=== PATIENT | female | born 1990 | race Caucasian/White ===

== ENCOUNTER 2017-04-03 12:18 | Inpatient (IN) | payer MEDICAID ==
[~2017-04-03] VITALS: Ht 160 cm; Wt 63.5 kg
[2017-04-03 12:55] LABS: BASOPHIL % 0.4 % (0-2); PLATELET COUNT 212 x10^3mcL (130-400); RED CELL DISTRIBUTION WIDTH 14.4 % (11.5-14.5)
[2017-04-03 13:03] LABS: CALCIUM 9.2 mg/dL (8.5-10.1); CARBON DIOXIDE 29.5 mmol/L (21-32); CHLORIDE SERUM 100 mmol/L (98-107); CREATININE SERUM 0.7 mg/dL (0.6-1.0); GFR1 > 60 mL/min; GLUCOSE SERUM 84 mg/dL (74-106); POTASSIUM SERUM 3.3 mmol/L (3.5-5.1); SODIUM SERUM 137 mmol/L (136-145)
[2017-04-03 13:07] LABS: ALBUMIN 3.5 g/dL (3.4-5.0); ALKALINE PHOSPHATASE 83 U/L (46-116); ALT/SGPT 25 U/L (14-59); AST/SGOT 30 U/L (15-37); BILIRUBIN TOTAL 0.7 mg/dL (0.20-1.00); TOTAL PROTEIN, SERUM 7.6 g/dL (6.4-8.2)
[2017-04-03 13:40] LABS: AMPHETAMINE QUAL UR POSITIVE (NEG <=1000)
[2017-04-04 07:57] LABS: MAGNESIUM 1.9 mg/dL (1.8-2.4); PHOSPHOROUS 4.6 mg/dL (2.5-4.9)
[2017-04-04 07:59] LABS: CHOLESTEROL/HDL RATIO 1.5
[2017-04-04 08:05] LABS: FREE T4 0.99 ng/dL (0.76-1.46); FREE THYROXINE INDEX 2.7 ug/dL (1.4-4.5); T3 TOTAL 1.04 ng/mL; T4(THYROXINE) 7.6 ug/dL (4.7-13.3)
[2017-04-05 01:16] VITALS: BP 101/53
[2017-04-05 06:55] LABS: BASOPHIL % 0.8 % (0-2); PLATELET COUNT 215 x10^3mcL (130-400); RED CELL DISTRIBUTION WIDTH 13.9 % (11.5-14.5)
[2017-04-05 07:00] LABS: CALCIUM 8.7 mg/dL (8.5-10.1); CARBON DIOXIDE 27.4 mmol/L (21-32); CHLORIDE SERUM 105 mmol/L (98-107); CREATININE SERUM 0.6 mg/dL (0.6-1.0); GFR1 > 60 mL/min; GLUCOSE SERUM 84 mg/dL (74-106); MAGNESIUM 1.9 mg/dL (1.8-2.4); PHOSPHOROUS 4.4 mg/dL (2.5-4.9); POTASSIUM SERUM 4.1 mmol/L (3.5-5.1); SODIUM SERUM 140 mmol/L (136-145)
[2017-04-05 08:09] VITALS: BP 99/62
[2017-04-05 11:41] VITALS: Ht 160 cm; Wt 63.5 kg
[2017-04-05 18:05] VITALS: BP 90/69
[2017-04-05 20:00] VITALS: BP 100/64
[2017-04-06 05:51] VITALS: BP 118/70
[2017-04-06 06:57] LABS: CALCIUM 8.9 mg/dL (8.5-10.1); CARBON DIOXIDE 27.1 mmol/L (21-32); CHLORIDE SERUM 106 mmol/L (98-107); CREATININE SERUM 0.6 mg/dL (0.6-1.0); GFR1 > 60 mL/min; GLUCOSE SERUM 88 mg/dL (74-106); POTASSIUM SERUM 4.4 mmol/L (3.5-5.1); SODIUM SERUM 139 mmol/L (136-145)
[2017-04-06 09:00] VITALS: BP 98/54
[2017-04-06 11:24] LABS: microscopic required? YES; urine erythrocyte TRACE (NEGATIVE)
[2017-04-06 18:10] VITALS: BP 111/69
[2017-04-07 06:18] VITALS: BP 108/71
[2017-04-07 09:08] VITALS: BP 119/75
[2017-04-07 18:00] VITALS: BP 101/56
[2017-04-07 19:30] VITALS: BP 111/70
[2017-04-08 05:44] VITALS: BP 100/61
[2017-04-08 08:56] VITALS: BP 107/54
[2017-04-08 17:00] VITALS: BP 129/63
[2017-04-08 20:08] VITALS: BP 102/67
[2017-04-09 06:27] VITALS: BP 93/61
[2017-04-09 10:25] VITALS: BP 106/65
[2017-04-09 17:28] VITALS: BP 105/60
[2017-04-10 06:06] VITALS: BP 97/55
[2017-04-10 17:03] VITALS: BP 104/46
[2017-04-10 19:26] VITALS: BP 112/62
[2017-04-11 05:27] VITALS: BP 101/59
[2017-04-11 09:05] VITALS: BP 121/64
[2017-04-11 17:25] VITALS: BP 108/79
[2017-04-11 20:30] VITALS: BP 114/65
[2017-04-12 18:00] VITALS: BP 101/46
[2017-04-12 21:24] VITALS: BP 110/71
[2017-04-13 09:44] VITALS: BP 130/75
[2017-04-13 17:18] VITALS: BP 121/69
[2017-04-13 21:00] VITALS: BP 101/56
[2017-04-14 06:59] VITALS: BP 97/55
[2017-04-14 08:00] VITALS: BP 107/61
[2017-04-14 17:58] VITALS: BP 118/74
[2017-04-14 22:57] VITALS: BP 102/59
[2017-04-15 09:08] VITALS: BP 121/69
[2017-04-15 17:55] VITALS: BP 111/72
[2017-04-15 20:06] VITALS: BP 111/64
[2017-04-16 05:13] VITALS: BP 101/66
[2017-04-16 07:59] VITALS: BP 109/64
[2017-04-16 19:30] VITALS: BP 109/71
[2017-04-16 21:16] VITALS: BP 112/59
[2017-04-17 06:20] VITALS: BP 97/48
[2017-04-17 09:55] VITALS: BP 104/55
[2017-04-17 17:01] VITALS: BP 102/72
[2017-04-17 21:00] VITALS: BP 109/69
[2017-04-18 10:00] VITALS: BP 106/67
[2017-04-18 20:10] VITALS: BP 104/56
[2017-04-19 04:13] VITALS: BP 90/46
[2017-04-19 04:14] VITALS: BP 90/46
[2017-04-19 06:03] VITALS: BP 94/58
[2017-04-19 18:05] VITALS: BP 116/70
[2017-04-19 21:22] VITALS: BP 111/68
[2017-04-20 04:53] VITALS: BP 103/54
[2017-04-20 10:40] VITALS: BP 105/62
[2017-04-20 21:00] VITALS: BP 104/65
[2017-04-21 05:54] VITALS: BP 102/48
[2017-04-21 10:05] VITALS: BP 112/70
[2017-04-21 16:59] VITALS: BP 102/65
[2017-04-21 17:00] LABS: BASOPHIL % 0.9 % (0-2); PLATELET COUNT 292 x10^3mcL (130-400); RED CELL DISTRIBUTION WIDTH 13.8 % (11.5-14.5)
[2017-04-21 17:06] LABS: CALCIUM 9.1 mg/dL (8.5-10.1); CARBON DIOXIDE 27.8 mmol/L (21-32); CHLORIDE SERUM 105 mmol/L (98-107); CREATININE SERUM 0.6 mg/dL (0.6-1.0); GFR1 > 60 mL/min; GLUCOSE SERUM 71 mg/dL (74-106); MAGNESIUM 2.1 mg/dL (1.8-2.4); PHOSPHOROUS 3.9 mg/dL (2.5-4.9); SODIUM SERUM 141 mmol/L (136-145)
[2017-04-21 21:30] VITALS: BP 110/70
[2017-04-22 06:06] VITALS: BP 92/53
[2017-04-22 10:00] VITALS: BP 117/66
[2017-04-22 17:56] VITALS: BP 106/57
[2017-04-22 22:27] VITALS: BP 103/61
[2017-04-23 06:25] VITALS: BP 99/57
[2017-04-23 09:52] VITALS: BP 118/69
[2017-04-23 17:48] VITALS: BP 110/42
[2017-04-23 21:08] VITALS: BP 103/64
[2017-04-24 06:54] VITALS: BP 125/69
[2017-04-24 09:45] VITALS: BP 103/59
[2017-04-24 18:14] VITALS: BP 107/69
[2017-04-24 20:58] VITALS: BP 111/69
[2017-04-25 05:48] VITALS: BP 116/71
[2017-04-25 10:33] VITALS: BP 113/59
[2017-04-25] MEDS ORDERED: SEROQUEL100 MG PO (13:27)
[2017-04-25] MEDS ORDERED: ABILIFY 2 MG PO (13:28)
[2017-04-25 14:35] VITALS: BP 113/59
== END 2017-04-25 15:43 | DRG 812 ==
LOC: EDBD 12:18 → ED 12:18 → DU 04-04 19:16 → MU 04-04 19:16 → DU 04-04 23:33 → MU 04-05 08:19
PROVIDERS: Emergency Medicine; Family Medicine; Family Medicine Sports Medicine; Student in an Organized Health Care Education/Training Program
DX: T43.621A Poisoning by amphetamines, accidental (unintentional), initial encounter (principal); G92 Toxic encephalopathy; F20.1 Disorganized schizophrenia; R45.851 Suicidal ideations; T40.5X1A Poisoning by cocaine, accidental (unintentional), initial encounter; F15.229 Other stimulant dependence with intoxication, unspecified; F14.229 Cocaine dependence with intoxication, unspecified; S91.111A Laceration without foreign body of right great toe without damage to nail, initial encounter; E87.6 Hypokalemia; F17.210 Nicotine dependence, cigarettes, uncomplicated; Z59.0 Homelessness; X58.XXXA Exposure to other specified factors, initial encounter; Y92.89 Other specified places as the place of occurrence of the external cause
CPT/HCPCS: 82962; 83880; 84439; 90658; G0480; J0515; J1630; J7030